=== PATIENT | female | born 1975 | race Caucasian/White ===

== ENCOUNTER → 2017-07-29 | Outpatient (CLI) | payer BC ==
--- NOTE | 2017-07-29 17:31 | WOMENS IMAGING REPORT ---
EXAM DESCRIPTION: 3D SCREENING MAMMO BILAT COMPLETED DATE/TIME: 07/29/2017 1:38 pm REASON FOR STUDY: SCREENING MAMMO Z12.31 ENCNTR SCREEN MAMMOGRAM FOR MALIGNANT NEOPLASM OF CURT COMPARISON: None. TECHNIQUE: Standard craniocaudal and mediolateral oblique views of each breast recorded using digita l acquisition and breast tomosynthesis. LIMITATIONS: None. FINDINGS: No masses, calcifications or architectural distortion. No areas of suspicion. Read with the assistance of CAD. .[facility] - R2 Cenova Version 1.3 .[facility] Imaging - R2 Cenova Version 1.3 .[facility] - R2 Cenova Version 2.4 .[facility] - R2 Cenova Version 2.4 .[facility] - R2 Health Sciences Program Coordinator Version 9.2 IMPRESSION: NORMAL MAMMOGRAM. BIRADS 1. BREAST DENSITY: b. There are scattered areas of fibroglandular density. BIRAD: 1 NEGATIVE RECOMMENDATION: ROUTINE SCREENING COMMENT: The patient has been notified of the results by letter per SA requirements. Additional no tification policies are in place for contacting patient with suspicious or incomplete findings. Quality ID #[id number]: The [employer] recommends an annual screening mammogram for women aged 40 years or over. This facility utilizes a reminder system to ensure that all patients receive reminder letters, and/or direct phone calls for appointments. This includes reminders for routine scr eening mammograms, diagnostic mammograms, or other Breast Imaging Interventions when appropriate. Th is patient will be placed in the appropriate reminder system. The [employer] (ACR) has developed recommendations for screening MRI of the breast s in certain patient populations, to be used in conjunction with mammography. Breast MRI surveillanc e may be appropriate for women with more than 20% lifetime risk of developing breast cancer as deter mined by genetic testing, significant family history of the disease, or history of mantle radiation f or Hodgkins Disease. ACR Practice Guidelines 2008. DBT Technology DBT is a type of tomographic mammography. With conventional mammography, overlapping breast tissue ma y make lesions difficult to detect, even with good compression. DBT uses an x-ray tube that rotates a round the breast, taking images at different angles. These images are then combined to create thin sl ices of the breast that the radiologist can view as a 3D reconstruction. The Monitor110 unit can perform full-field digital mammograms (2D imaging); or DBT (3D imaging); or both, in a combination mode that quickly performs both the mammogram and the tomosynthesis scan while the breast is still compressed. PQRS 6045F: Fluoroscopic imaging is not utilized for breast tomosynthesis. TECHNICAL DOCUMENTATION: FINDING NUMBER: (1) ASSESSMENT: (1) JOB ID: [id number] [employer]- All Rights Reserved Reading location - IP/workstation name: [email or web address]
== END ==
LOC: WI 13:16
PROVIDERS: ATTEND Physician Assistant
DX: Z12.31 Encounter for screening mammogram for malignant neoplasm of breast (principal)
CPT/HCPCS: 77063; 77067

== ENCOUNTER 2018-04-02 09:28 | Emergency (ER) | payer BC ==
--- NOTE | 2018-04-02 10:13 | ER Document Report ---
ED Medical Screen (RME) - General Chief Complaint: Rib Pain Stated Complaint: RIGHT SIDE/RIB PAIN Time Seen by Provider: 04/02/18 10:05 Mode of Arrival: Ambulatory Information source: Patient Notes: 42-year-old female presents emergency department with complaints of right-sided chest pain that started when she woke up this morning. She describes the pain as a constant sharp stabbing pain. She states that it is located in the right lateral chest without any radiation. She states that deep breaths and movement make the pain worse. She denies any alleviating factors. Patient denies any difficulty breathing, fever, chills, cough, abdominal pain, nausea, vomiting. She denies a history of hypertension, hyperlipidemia, diabetes, coronary artery disease, smoking. She also denies any recent travel, recent surgeries, calf pain, calf swelling, hormone use. I have greeted and performed a rapid initial assessment of this patient. A comprehensive ED assessment and evaluation of the patient, analysis of test results and completion of the medical decision making process will be conducted by additional ED providers. PHYSICAL EXAMINATION: GENERAL: Well-appearing, well-nourished and in no acute distress. HEAD: Atraumatic, normocephalic. EYES: Pupils equal round extraocular movements intact, conjunctiva are normal. ENT: Nares patent NECK: Normal range of motion LUNGS: No respiratory distress. Right anterior- lateral chest wall tenderness to palpation. Musculoskeletal: Normal range of motion. NEUROLOGICAL: Normal speech, normal gait. PSYCH: Normal mood, normal affect. SKIN: Warm, Dry, normal turgor, no rashes or lesions noted. TRAVEL OUTSIDE OF THE [place] IN LAST 30 DAYS: No - Related Data Allergies/Adverse Reactions: No Known Allergies Allergy (Verified 04/02/18 09:59) Past Medical History - Social History Chew tobacco use (# tins/day): No Frequency of alcohol use: Social Drug Abuse: None Renal/ Medical History: Denies: Hx Peritoneal Dialysis Physical Exam - Vital signs Vitals: Temp Pulse Resp BP Pulse Ox 98.3 F 103 H 18 125/79 96 04/02/18 09:36 04/02/18 09:36 04/02/18 09:36 04/02/18 09:36 04/02/18 09:36 Course - Vital Signs Vital signs: Temp Pulse Resp BP Pulse Ox 98.3 F 103 H 18 125/79 96 04/02/18 09:36 04/02/18 09:36 04/02/18 09:36 04/02/18 09:36 04/02/18 09:36 Doctor's Discharge - Discharge Referrals: HEALTH,EMPLOYEE [Primary Care Provider] - Follow up as needed
[2018-04-02 10:45] LABS: ABSOLUTE LYMPHOCYTES (AUTO) 1.9 10^3/uL (0.5-4.7); ABSOLUTE MONOCYTES (AUTO) 0.5 10^3/uL (0.1-1.4); ABSOLUTE NEUT (AUTO) 5.2 10^3/uL (1.7-8.2); BASOPHILS % (AUTO) 0.3 % (0-2); EOSINOPHILS % (AUTO) 0.5 % (0-6); HEMATOCRIT 40.5 % (36.0-47.0); HEMOGLOBIN 14.1 g/dL (12.0-15.5); LYMPHOCYTES % (AUTO) 24.9 % (13-45); MEAN CORPUSCULAR HEMOGLOBIN 30.7 pg (27.0-33.4); MEAN CORPUSCULAR HGB CONC 34.8 g/dL (32.0-36.0); MEAN CORPUSCULAR VOLUME 88 fl (80-97); MONOCYTES % (AUTO) 6.8 % (3-13); PLATELET COUNT 308 10^3/uL (150-450); RED BLOOD COUNT 4.59 10^6/uL (3.72-5.28); RED CELL DISTRIBUTION WIDTH 12.5 % (11.5-14.0); SEGMENTED NEUTROPHILS % (AUTO) 67.5 % (42-78); TOTAL CELLS COUNTED % (AUTO) 100 %; WHITE BLOOD COUNT 7.7 10^3/uL (4.0-10.5)
[2018-04-02 11:01] LABS: ALANINE AMINOTRANSFERASE 17 U/L (9-52); ALBUMIN 4.3 g/dL (3.5-5.0); ALKALINE PHOSPHATASE 63 U/L (38-126); ANION GAP 15 (5-19); ASPARTATE AMINO TRANSFERASE 21 U/L (14-36); BILIRUBIN,DIRECT 0.2 mg/dL (0.0-0.4); BILIRUBIN,TOTAL 0.4 mg/dL (0.2-1.3); BLOOD UREA NITROGEN 10 mg/dL (7-20); CALCIUM 8.6 mg/dL (8.4-10.2); CARBON DIOXIDE 26 mmol/L (22-30); CHLORIDE 101 mmol/L (98-107); GLUCOSE 82 mg/dL (75-110); TOTAL PROTEIN 6.8 g/dL (6.3-8.2)
--- NOTE | 2018-04-02 11:05 | RADIOLOGY REPORT (SQ) ---
EXAM DESCRIPTION: CHEST 2 VIEWS COMPLETED DATE/TIME: 04/02/2018 10:39 am REASON FOR STUDY: R chest pain COMPARISON: None. EXAM PARAMETERS: NUMBER OF VIEWS: two views TECHNIQUE: Digital Frontal and Lateral radiographic views of the chest acquired. RADIATION DOSE: NA LIMITATIONS: none FINDINGS: LUNGS AND PLEURA: No opacities, masses or pneumothorax. No pleural effusion. MEDIASTINUM AND HILAR STRUCTURES: No masses or contour abnormalities. HEART AND VASCULAR STRUCTURES: Heart normal size. No evidence for failure. BONES: No acute findings. HARDWARE: None in the chest. OTHER: No other significant finding. IMPRESSION: NO ACUTE RADIOGRAPHIC FINDING IN THE CHEST. TECHNICAL DOCUMENTATION: JOB ID: [id number] [employer]- All Rights Reserved Reading location - IP/workstation name: [email or web address]
--- NOTE | 2018-04-02 11:59 | ER Document Report ---
ED General - General Chief Complaint: Rib Pain Stated Complaint: RIGHT SIDE/RIB PAIN Time Seen by Provider: 04/02/18 10:05 Mode of Arrival: Ambulatory TRAVEL OUTSIDE OF THE [place] IN LAST 30 DAYS: No - HPI Patient complains to provider of: pain in right chest Onset: Other - This 42-year-old female presents for evaluation of atraumatic pain to the right side of her arm and chest, she woke up this morning with pain most prominent over the shoulder and then the axilla. 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 She denies any history of cardiac problems in the past, heart attack, family history of heart attack, abdominal pain recent illnesses fever chills cough shortness of breath abdominal pain diarrhea constipation or dysuria. - Related Data Allergies/Adverse Reactions: No Known Allergies Allergy (Verified 04/02/18 09:59) Past Medical History - General Information source: Patient - Social History Smoking Status: Current Every Day Smoker Chew tobacco use (# tins/day): No Frequency of alcohol use: Social Drug Abuse: None Family History: None Patient has suicidal ideation: No Patient has homicidal ideation: No Renal/ Medical History: Denies: Hx Peritoneal Dialysis Review of Systems - Review of Systems -: Yes All other systems reviewed and negative Physical Exam - Vital signs Vitals: Temp Pulse Resp BP Pulse Ox 98.3 F 103 H 18 125/79 96 04/02/18 09:36 04/02/18 09:36 04/02/18 09:36 04/02/18 09:36 04/02/18 09:36 - General General appearance: Appears well In distress: None - HEENT Head: Normocephalic Eyes: Normal Conjunctiva: Normal Cornea: Normal Extraocular movements intact: Yes Eyelashes: Normal Pupils: PERRL - Respiratory Respiratory status: No respiratory distress Chest status: Nontender Breath sounds: Normal Chest palpation: Normal - Cardiovascular Rhythm: Regular Heart sounds: Normal auscultation Murmur: No - Abdominal Inspection: Normal Distension: No distension Tenderness: Nontender - Back Back: Normal - Extremities General upper extremity: Normal inspection, Nontender, Normal ROM, Normal strength General lower extremity: Normal ROM Shoulder: Other - The right shoulder is tender to palpation along the pectoralis minor, the serratus anterior is tender to palpation under the base of the right axilla - Neurological Neuro grossly intact: Yes Cognition: Normal Orientation: AAOx4 Charisse Coma Scale Eye Opening: Spontaneous [place] Coma Scale Verbal: Oriented [place] Coma Scale Motor: Obeys Commands Charisse Coma Scale Total: 15 Speech: Normal Cranial nerves: Normal Motor strength normal: LUE, RUE, LLE, RLE - Psychological Associated symptoms: Normal affect Course - Re-evaluation Re-evalutation: 04/02/18 15:30 42-year-old female that presents for evaluation of pain in the right shoulder. Her right shoulder is markedly tender, to exacerbation she has tenderness to the pectoralis major as well as serratus anterior. The shoulder does demonstrate normal range of motion. Because her initial heart rate was 103 although I have a low suspicion for any serious thromboembolic event will obtain a d-dimer, patient's EKG chest x-ray chemistry and count are normal, her symptoms have persisted for greater than 3 hours as such as single troponin essentially rules out ND at this time. Her d-dimer is negative, she is well-appearing. We discussed the likelihood that this is musculoskeletal and pain as such we will plan for this patient undergo discharge with return precautions and encouraged follow-up will give her a brief prescription for muscle relaxer. - Vital Signs Vital signs: Temp Pulse Resp BP Pulse Ox 98.3 F 103 H 18 125/79 96 04/02/18 09:36 04/02/18 09:36 04/02/18 09:36 04/02/18 09:36 04/02/18 09:36 - Laboratory Result Diagrams: 04/02/18 10:26 04/02/18 10:26 Discharge - Discharge Clinical Impression: Chest wall pain Condition: Good Disposition: HOME, SELF-CARE Instructions: Anti-Inflammatory Medication ([facility]), Chest Wall Pain ([facility]) Additional Instructions: You were seen today in the emergency department for the pain in the right side of her chest. You had an evaluation including a chest x-ray as well as multiple blood tests. Use the muscle relaxer prescribed you only as needed. Return for worsening fevers or chills, shortness of breath, inability to breathe or other symptoms. Otherwise schedule an appointment with your primary physician. Prescriptions: Cyclobenzaprine HCl [Flexeril 5 mg Tablet] 5 mg PO TID #15 tablet Forms: Return to Work Referrals: HEALTH,EMPLOYEE [ACTIVE STAFF] - Follow up as needed
--- NOTE | 2018-04-02 12:28 | EKG REPORT ---
SEVERITY:- NORMAL ECG - SINUS RHYTHM : Confirmed by: Lindsay Severino MD 02-Apr-2018 12:26:42
[2018-04-02 14:37] VITALS: BP 115/69
== END 2018-04-02 14:15 | disposition home or self-care (01) ==
LOC: ER 09:28
DX: R07.9 Chest pain, unspecified (principal); F17.200 Nicotine dependence, unspecified, uncomplicated
CPT/HCPCS: 36415; 71046; 80053; 84484; 85025; 85379; 93005; 93010; 99284